=== PATIENT | male | born 1930 | race Caucasian/White ===

== ENCOUNTER 2016-07-27 14:26 | Inpatient (IN) ==
[2016-07-27 15:26] LABS: MANUAL DIFF NEEDED? NO
[2016-07-27 15:29] LABS: BASO% 0.1 % (0.0-0.8); EOS# 0.01 X1000 (0.0-0.7); EOS% 0.1 % (0.0-10.0); HEMATOCRIT 43.1 % (42.0-52.0); HEMOGLOBIN 14.3 g/dL (14.0-18.0); IMM GRAN# 0.02 X1000 (0.0-0.04); IMM GRAN% 0.2 % (0.0-0.5); LYMPH# 0.62 X1000 (1.2-3.4); LYMPH% 5.6 % (20.5-51.1); MCH 32.1 PG (27-31); MCHC 33.2 g/dL (33-37); MCV 96.9 FL (81-99); MONO# 1.09 X1000 (0.11-0.59); MONO% 9.8 % (1.7-9.3); MPV 9.6 FL (7.4-10.4); NEUT% 84.2 % (42.2-75.2); PLT 186 X1000 (130-400); RBC 4.45 XMIL (4.7-6.1)
[2016-07-27 16:01] LABS: ALBUMIN 4.6 g/dL (3.5-5.0); CALCIUM 10.4 mg/dL (8.8-10.2); POTASSIUM 3.9 mmol/L (3.5-5.1); TOTAL BILIRUBIN 2.3 mg/dL (0.20-1.00); TOTAL PROTEIN 7.9 g/dL (6.3-8.3)
[2016-07-27] MEDS: ZOFRAN IV PRN (16:19)
[2016-07-27] MEDS: D5 1/2 NS 1,000 ML IV SCH ×2 (16:19→23:52)
--- NOTE | 2016-07-27 16:52 | Diag Imaging Result Document ---
PROCEDURE NAME: US GB < RUQ (LIMITED) - 07/27/2016 PORTABLE GALLBLADDER ULTRASOUND: INDICATION: Abdomen pain. FINDINGS: The stomach is fluid distended, as are multiple jejunal loops in the upper abdomen. Followup with acute abdominal series is recommended to assess for possible small-bowel obstruction. The liver appears normal in size and echotexture. There is cholelithiasis and associated gallbladder sludge. No gallbladder wall thickening or pericholecystic fluid is appreciated. The abdominal aorta and IVC are not visualized. Common bile duct measures 2.4 mm. The pancreas is suboptimally visualized. The right kidney is unremarkable. No hydronephrosis. No sonographic Sawant sign was elicited according to the technologist. IMPRESSION: 1. Cholelithiasis and gallbladder sludge. 2. No sonographic evidence for acute cholecystitis. 3. Multiple distended proximal small-bowel loops. Findings may indicate ileus or mechanical small- bowel obstruction. Followup with acute abdominal series or CT scan of the abdomen and pelvis is recommended as desired clinically.
--- NOTE | 2016-07-27 17:46 | HISTORY AND PHYSICAL ---
CHIEF COMPLAINT: Nausea and vomiting for 2 or 3 days, generalized weakness, and decrease in urine output. PRESENT ILLNESS: This is the 1st recent [facility] admission for this 86-year-old, white man who has a moderate degree of dementia but also generalized weakness. He was in his usual state of health until Saturday when he ate some pureed chicken and dressing from [employer]. His daughter feels that he became sick after eating that. His did not eat any. He had some vomiting, but no hematemesis. He has had normal bowel movements and no diarrhea. He presented to the office today and was too weak to get out of his car. He was checked and found to be very weak with thready pulse. He was admitted for treatment with intravenous fluids and for further evaluation. In 2014 his BUN and creatinine were 22 and 0.9. After admission, laboratory was done and revealed BUN to be 80 and creatinine 2.0. Bilirubin was elevated at 2.3. Other liver functions were normal. Amylase was 48. PAST MEDICAL HISTORY: He had a right inguinal hernia repair many years ago. There is history of ulcer disease. PRESENT MEDICATIONS: None. ALLERGIES: Hydrocodone. REVIEW OF SYSTEMS: Progressive weakness over the past couple of years with physical therapy through home health assistance and also provision of walker with wheels and a seat. He has dyspnea with walking about 20 feet. There has been no recent weight loss. Appetite has been fair until Saturday. FAMILY HISTORY: His father with heart disease at age 32. There is no history of cancer. SOCIAL HISTORY: and lives with his . She has moderate disability with chronic back pain. There is no history of smoking or alcohol usage. PHYSICAL EXAMINATION: VITAL SIGNS: Temperature. 98.2 ,heart rate 92, respirations 18, blood pressure 160/71. O2 saturation on room air 100%. Weight 145, height 5 feet 2 inches. GENERAL: Patient is weak and answers simple questions, but does not speak in sentences. HEENT: Pupils equal, round, and reactive to light. Tympanic membranes without inflammation. Pharynx benign with no erythema or exudate. NECK: Supple with no mass or lymphadenopathy. HEART: Regular in rate and rhythm with no murmur, rub or gallop. LUNGS: Clear with no rales or rhonchi. ABDOMEN: Soft with epigastric tenderness but no mass or organomegaly. EXTREMITIES: No cyanosis, clubbing, or edema. There are osteoarthritic changes of the hands and feet. Also knees. IMPRESSION: Acute gastritis, possible gallbladder disease, dehydration, generalized osteoarthritis, moderate dementia. PLAN: Admit for further evaluation and hydration. cc: Philippe Ma MD
[2016-07-28] MEDS: ZOFRAN IV PRN (00:31)
--- NOTE | 2016-07-28 02:20 | Diag Imaging Result Document ---
PROCEDURE NAME: CHEST-PORTABLE - 07/27/2016 PORTABLE CHEST: COMPARISON: Compared with 01/15/2016. FINDINGS: Heart size is within normal limits. Inspiration is mildly shallow. There is mild prominence of lower lung interstitial markings which appears to be chronic. There are ovoid calcifications at the mid to lower left chest which are similar to the previous exam and likely represent granulomas from old granulomatous disease. There is no consolidation, pleural effusion, or pneumothorax identified. IMPRESSION: Mildly shallow inspiration. Mild prominence of lower lung interstitial markings which appears to be chronic. No other evidence of acute disease.
[2016-07-28 06:34] LABS: CALCIUM 9.2 mg/dL (8.8-10.2)
--- NOTE | 2016-07-28 08:26 | PROGRESS NOTE ---
DATE: 07/28/2016 SUBJECTIVE: The patient had some additional vomiting last night. VITAL SIGNS: Temperature 97.6 degrees, heart rate 83, respirations 20, blood pressure 152/58, O2 saturation 98% on room air. OBJECTIVE: Abdominal ultrasound suggested ileus and CT scan was recommended if symptoms persisted. LABORATORY: Sodium 140, potassium 3.0. BUN 86, creatinine 1.6, glucose 156. PLAN: Abdominal CT without contrast is ordered for this morning. IV potassium is also ordered as well as lab for tomorrow morning. If he continues to have vomiting and CT confirms ileus, an NG tube may be needed. cc: Philippe Ma MD
[2016-07-28] MEDS: POTASSIUM CHLORIDE 20 MEQ/SWI 20 MEQ/100 ML IVPB IV SCH ×2 (09:02→12:28)
[2016-07-28] MEDS: D5 LR 1,000 ML IV SCH ×4 (09:02→23:01)
[2016-07-28] MEDS: COZAAR PO SCH (09:03)
--- NOTE | 2016-07-28 09:10 | PROGRESS NOTE ---
DATE: 07/27/[address] The patient had a CT of his abdomen this morning. This revealed possible small-bowel obstruction of the distal small bowel. No masses were seen. PLAN: NG tube is placed. Flat and upright abdominal films are ordered for tomorrow morning. If there is no improvement, he may be transferred to [facility] and surgical consultation obtained. cc: Philippe Ma MD
--- NOTE | 2016-07-28 09:12 | Diag Imaging Result Document ---
PROCEDURE NAME: ABDOMEN/PELVIS W/O CONTRAST - 07/28/2016 CT ABDOMEN AND PELVIS WITHOUT CONTRAST: FINDINGS: No contrast administered per request of the referring provider. A dose reduction protocol was used. No comparison exam. There are mild infiltrate and atelectasis at the right lung base. The stomach is distended with fluid. There is dilatation of multiple small bowel loops with retained fluid. There is nondistended distal small bowel visible. These findings are suspicious for mid to distal small bowel obstruction. The specific etiology for the obstruction is not identified. A definitive internal hernia or volvulus is not identified. There is no abscess identified. There is no free air identified. There is a moderate amount of retained fecal debris noted in the right colon. There are no acute appearing abnormalities of the liver, spleen, adrenal glands , pancreas, or kidneys identified. There are small calcified gallstones in the dependent portion of the gallbladder. There is no pericholecystic inflammation identified. IMPRESSION: 1. Distended stomach and jejunum with retained fluid, highly suspicious for mid to distal small bowel obstruction. The specific etiology for the obstruction is not apparent. 2. No evidence of abscess. No free air. 3. Moderate amount of retained fecal debris in right colon. 4. Small calcified gallstones in gallbladder. No evidence of pericholecystic inflammation. 5. Mild infiltrate and atelectasis at right lung base. Dr. Ma was notified by telephone of the small bowel obstruction at 8:38 a.m. on July 28, 2016. MTDD
--- NOTE | 2016-07-28 10:53 | Diag Imaging Result Document ---
PROCEDURE NAME: CHEST-PORTABLE - 07/28/2016 PORTABLE CHEST: COMPARISON: July 27, 2016. FINDINGS: There has been interval insertion of a nasogastric tube. The tip of the nasogastric tube is at the expected location of the mid stomach. The external portion of the nasogastric tube is noted to overlie the mediastinum and right upper quadrant abdomen. There are no other interval changes identified. IMPRESSION: Tip of nasogastric tube in midstomach. Verbal results were provided to nurse, Alyssa, at 10:14 a.m. on July 28, 2016.
[2016-07-28] MEDS: PROTONIX IV SCH (12:43)
[2016-07-28] MEDS: SODIUM CHLORIDE 0.9% INJ SCH (12:43)
[2016-07-28 12:44] LABS: HEMATOCRIT 38.6 % (42.0-52.0); HEMOGLOBIN 12.8 g/dL (14.0-18.0)
[2016-07-28 14:24] LABS: BILIRUBIN URINE NEGATIVE (NEGATIVE); BLOOD URINE NEGATIVE (NEGATIVE); CLARITY CLEAR (CLEAR); COLOR YELLOW; GLUCOSE URINE NEGATIVE (NEGATIVE); LEUKOCYTES URINE TRACE (NEGATIVE); NITRITE URINE NEGATIVE (NEGATIVE); PROTEIN URINE 1+(30 mg/dL) mg/dL (NEGATIVE); UROBILINOGEN URINE NORMAL
[2016-07-28 14:41] LABS: URINE WBC <10 /HPF (<10)
[2016-07-28 14:42] LABS: URINE CAST NONE SEEN /LPF; URINE CRYSTAL NONE SEEN /HPF; URINE CULTURE PL NEEDED? YES; URINE EPITHELIAL CELLS <10 /HPF (<10); URINE SOURCE CATH
[2016-07-28] MEDS: ROCEPHIN 1 GM/NS 1 GM/50 ML IVPB IV SCH (15:30)
[2016-07-28] MEDS: D5 1/2 NS 1,000 ML IV SCH (16:26)
[2016-07-28] MEDS: TEARISOL OPH SOLUTION LEFT EYE PRN (17:48)
[2016-07-29] MEDS: PROTONIX IV SCH ×2 (00:34→12:22)
[2016-07-29 04:15] LABS: MANUAL DIFF NEEDED? NO
[2016-07-29 04:23] LABS: EOS# 0.02 X1000 (0.0-0.7); EOS% 0.4 % (0.0-10.0); HEMATOCRIT 35.1 % (42.0-52.0); HEMOGLOBIN 11.7 g/dL (14.0-18.0); IMM GRAN# 0.01 X1000 (0.0-0.04); IMM GRAN% 0.2 % (0.0-0.5); LYMPH% 10.6 % (20.5-51.1); MCHC 33.3 g/dL (33-37); MCV 98.9 FL (81-99); MONO# 0.61 X1000 (0.11-0.59); MONO% 10.8 % (1.7-9.3); MPV 9.6 FL (7.4-10.4); PLT 121 X1000 (130-400); RBC 3.55 XMIL (4.7-6.1)
[2016-07-29 04:42] LABS: CALCIUM 8.7 mg/dL (8.8-10.2); POTASSIUM 3.2 mmol/L (3.5-5.1)
[2016-07-29] MEDS: D5 LR 1,000 ML IV SCH ×3 (06:39→22:04)
--- NOTE | 2016-07-29 07:33 | Diag Imaging Result Document ---
PROCEDURE NAME: ABDOMEN FLAT/UPRIGHT - 07/29/2016 PORTABLE FLAT AND UPRIGHT ABDOMEN: FINDINGS: The nasogastric tube overlies the stomach. No free air beneath the diaphragm. No bowel obstruction. No organomegaly. There are degenerative changes spine changes with scoliosis. IMPRESSION: No evidence of acute abnormality.
--- NOTE | 2016-07-29 08:57 | PROGRESS NOTE ---
DATE: 07/29/2016 VITAL SIGNS: Stable with temperature 98.1 degrees, heart rate 88, respirations 18, blood pressure 118/52, O2 saturation 97% on room air. LABORATORY: Hemoglobin 11.7, hematocrit 35.1, white blood count 5600 with normal differential. Sodium 141, potassium 3.2, BUN 77, creatinine 1.4, calcium 8.7, glucose 132. Flat and upright abdominal x-ray, no evidence of bowel obstruction and no free air under the diaphragm. Chest is clear. PLAN: Remove NG tube and place on clear liquids. Potassium is added IV. Hopefully, he will be able to get up in a chair today. cc: Philippe Ma MD
[2016-07-29] MEDS ORDERED: LOVENOX SUBQ SCH (09:00)
[2016-07-29] MEDS: COZAAR PO SCH (09:51)
[2016-07-29] MEDS: POTASSIUM CHLORIDE 20 MEQ/SWI 20 MEQ/100 ML IVPB IV SCH ×2 (09:51→12:22)
[2016-07-29] MEDS: SODIUM CHLORIDE 0.9% INJ SCH (12:22)
[2016-07-29] MEDS: ROCEPHIN 1 GM/NS 1 GM/50 ML IVPB IV SCH (16:28)
[2016-07-29] MEDS ORDERED: DULCOLAX PR ONE (18:37)
[2016-07-30] MEDS: D5 LR 1,000 ML IV SCH ×6 (04:53→20:12)
[2016-07-30] MEDS: PRILOSEC PO SCH (06:22)
[2016-07-30 06:26] LABS: AGAP 7; BUN 57 mg/dL (8-22); CALCIUM 8.8 mg/dL (8.8-10.2); CHLORIDE 97 mmol/L (98-107); COSMO 293; POTASSIUM 3.5 mmol/L (3.5-5.1); SODIUM 138 mmol/L (136-145); TCO2 34 mmol/L (25-35)
[2016-07-30] MEDS ORDERED: MILK OF MAGNESIA PO ONE ×2 (07:30→10:00)
--- NOTE | 2016-07-30 08:50 | PROGRESS NOTE ---
DATE: 07/30/2016 LABS: Sodium 130, potassium 3.5, chloride 97, CO2 of 34, BUN 57, creatinine 1.1. Glucose 117. VITAL SIGNS: Temperature 97.4, heart rate 76, respiration 19, blood pressure 125/39, O2 saturation on room air 96%. OBJECTIVE: He did not have a bowel movement overnight despite Dulcolax suppository. Abdomen is soft. He is alert. He tolerated p.o. liquids yesterday. Chest is clear. He is very weak and unable to stand without assistance. PLAN: Increase diet to GI soft. Physical therapy will continue to ambulate. He is given milk of magnesia. DISPOSITION: Will be most likely rehab. cc: Philippe Ma MD
[2016-07-30] MEDS: COZAAR PO SCH (09:59)
[2016-07-30] MEDS: ROCEPHIN 1 GM/NS 1 GM/50 ML IVPB IV SCH (16:14)
[2016-07-30] MEDS ORDERED: CITRATE OF MAGNESIA PO ONE (16:44)
[2016-07-31] MEDS: D5 LR 1,000 ML IV SCH ×4 (03:10→18:50)
[2016-07-31] MEDS: PRILOSEC PO SCH (06:01)
--- NOTE | 2016-07-31 07:56 | PROGRESS NOTE ---
DATE: 07/31/2016 HISTORY: Vital signs: Temperature 98.1 degrees, heart rate 84, respiration 18, blood pressure 118/62, O2 saturation on room air 98%. He had additional vomiting last night and could not keep in the magnesium citrate. He had vomiting after taking about half the dose. An NG was replaced and 2200 mL was obtained on insertion of the NG. Abdominal x-ray revealed NG was in appropriate position. Upright film was not done and evidence of fluid levels could not be determined. PLAN: Because of recurrent vomiting and signs of bowel obstruction, he will be sent to [facility] for surgical consultation and evaluation. Rectal exam was done this morning and revealed no stool. He has not had a bowel movement since admission. cc: Philippe Ma MD
[2016-07-31 08:25] LABS: AGAP 5; ALBUMIN 3.2 g/dL (3.5-5.0); ALKALINE PHOSPHATASE 71 U/L (32-122); BUN 38 mg/dL (8-22); CALCIUM 8.7 mg/dL (8.8-10.2); CHLORIDE 100 mmol/L (98-107); COSMO 287; GOT 16 U/L (10-34); GPT 10 U/L (10-44); POTASSIUM 3.1 mmol/L (3.5-5.1); SODIUM 138 mmol/L (136-145); TCO2 33 mmol/L (25-35); TOTAL PROTEIN 5.5 g/dL (6.3-8.3)
--- NOTE | 2016-07-31 08:25 | Diag Imaging Result Document ---
PROCEDURE NAME: ABDOMEN FLAT/UPRIGHT - 07/30/2016 SUPINE AND UPRIGHT ABDOMEN, THREE VIEWS: FINDINGS: There is a nasogastric tube overlying the stomach. No free air beneath the diaphragm. There is stool in the colon. The bowel loops are not overly distended. There is scoliosis with degenerative spine changes. IMPRESSION: No obstruction identified.
[2016-07-31 08:49] LABS: MANUAL DIFF NEEDED? NO
[2016-07-31 08:52] LABS: BASO% 0.2 % (0.0-0.8); EOS# 0.06 X1000 (0.0-0.7); EOS% 1.4 % (0.0-10.0); HEMOGLOBIN 11.5 g/dL (14.0-18.0); IMM GRAN# 0.01 X1000 (0.0-0.04); IMM GRAN% 0.2 % (0.0-0.5); LYMPH# 0.49 X1000 (1.2-3.4); LYMPH% 11.1 % (20.5-51.1); MCH 31.7 PG (27-31); MCHC 31.9 g/dL (33-37); MCV 99.2 FL (81-99); MONO# 0.54 X1000 (0.11-0.59); MONO% 12.3 % (1.7-9.3); MPV 9.7 FL (7.4-10.4); NEUT% 74.8 % (42.2-75.2); PLT 117 X1000 (130-400); RBC 3.63 XMIL (4.7-6.1)
[2016-07-31] MEDS: COZAAR PO SCH (08:57)
[2016-07-31] MEDS: PROTONIX IV SCH (08:58)
[2016-07-31] MEDS: SODIUM CHLORIDE 0.9% INJ SCH (08:58)
[2016-07-31] MEDS: ROCEPHIN 1 GM/NS 1 GM/50 ML IVPB IV SCH (15:58)
[2016-07-31] MEDS: POTASSIUM CHLORIDE 20 MEQ/SWI 20 MEQ/100 ML IVPB IV SCH ×2 (16:55→19:25)
--- NOTE | 2016-07-31 20:49 | CONSULTATION ---
DATE OF CONSULTATION: 07/31/2016 HISTORY OF PRESENT ILLNESS: This is an 86-year-old, white male who was admitted to Dr. Philippe Ma's service on Saturday, the , with colicky abdominal pain, nausea and vomiting. A CT scan was concerning for bowel obstruction versus ileus. An NG tube which ultimately removed on Saturday. He was given liquids and began with bilious emesis at that time. NG tube was replaced and he was transferred to [facility]. He had some colicky pain but this improved. He denies any flatus or bowel movements. states he has been deteriorating at home, losing weight, not really getting around well, using a walker. PAST MEDICAL HISTORY: History of peptic ulcer disease. MEDICATIONS: He does not take any medications. PAST SURGICAL HISTORY: He had a right inguinal hernia repair and a knee operation. SOCIAL HISTORY: He lives with his of 47 years. He is disabled with chronic back pain. No tobacco or alcohol. REVIEW OF SYSTEMS: Ten point negative other than what is mentioned in the HPI. FAMILY HISTORY: Coronary disease, but no cancer. PHYSICAL EXAMINATION: Vital Signs: Temperature is 98.4 degrees, pulse 81, blood pressure 132/57, O2 saturation 99% on room air. General: He is alert, cachectic appearing, elderly gentleman. HEENT: No scleral icterus. There is no cervical mass or lymphadenopathy. Cardiovascular: Normal rate, regular rhythm. Pulmonary: No increased work of breathing. He is on room air. Gastrointestinal: There is a G-tube in place with scant clear brownish discharge. Abdomen is soft, nontender, nondistended. I feel no umbilical or inguinal hernias. Integument: Otherwise warm and dry without jaundice. Musculoskeletal Examination: There is significant atrophy and wasting throughout. Neurologic: He is mildly disoriented and confused but alert. LABS: White count 4, hematocrit 36, platelets 117. Sodium is 138, potassium is low at 3.1, BUN is 38, creatinine 0.9, glucose is 132, bilirubin is mildly elevated at 1.2, AST and ALT are 16 and 10, amylase was 48 on admission. Urinalysis shows ill trace white blood cells. ASSESSMENT AND PLAN: This is an 86-year-old male with what appears to be bowel obstruction versus ileus. I do not see a clear transition point, rather there is bowel compromise on CT scan that is slow to resolve. He has persistent electrolyte abnormalities with hypokalemia. He has not had a magnesium check in a while. He has failed NG tube removal trial. PLAN: We will keep the NG tube in tonight with strict bowel rest. He will need nutritional supplementation given his cachectic state and ongoing nature of this. We will plan for an upper GI with small-bowel follow-through with water-soluble contrast tomorrow. I would recommend aggressive electrolyte repletion with K greater than 4, magnesium greater than 2 to facilitate resolution of any ileus type symptoms. I would avoid stimulating from above but dulcolax suppositories would be not unreasonable given that he does have some stool burden in the right colon. We will continue to follow along. I suspect if he does not progress in the next 24 to 48 hours, he may ultimately need an operation and this would be a big deal for this ill- appearing 86- year-old male. cc: MD Philippe Simmons MD MTDD
[2016-08-01] MEDS: PROTONIX IV SCH ×2 (05:16→07:57)
[2016-08-01] MEDS: D5 LR 1,000 ML IV SCH ×2 (05:16→05:44)
[2016-08-01] MEDS: SODIUM CHLORIDE 0.9% INJ SCH (05:17)
[2016-08-01] MEDS ORDERED: [UNRECOGNIZED DRUG - OTHER] IV SCH (07:45)
--- NOTE | 2016-08-01 07:57 | PROGRESS NOTE ---
DATE: 08/01/2016 Vital signs are stable with temperature 98.4 degrees, heart rate 77, respirations 16, blood pressure 144/56, O2 saturation on room air of 98%. Laboratory is pending. Patient was transferred to [facility] last evening for surgical consultation. NG tube has been needed on 2 occasions since there seems to be a small bowel obstruction. He was seen by Dr. Chan last evening and plans upper GI with small-bowel follow-through with water-soluble contrast. Nutritional status is of concern. He may need a central line and TPN soon if his obstruction could not be relieved. He is a significant surgical risk with age and condition. I and O over the last shift was positive 2400. He has no peripheral edema or rales on exam. PLAN: Continue NG and potassium replacement. cc: Philippe Ma MD
[2016-08-01 08:01] LABS: AGAP 11; BUN 28 mg/dL (8-22); CALCIUM 8.6 mg/dL (8.8-10.2); CHLORIDE 103 mmol/L (98-107); COSMO 289; POTASSIUM 3.7 mmol/L (3.5-5.1); SODIUM 142 mmol/L (136-145); TCO2 28 mmol/L (25-35)
--- NOTE | 2016-08-01 09:11 | Diag Imaging Result Document ---
PROCEDURE NAME: ABDOMEN FLAT/UPRIGHT - 07/31/2016 FLAT AND UPRIGHT RADIOGRAPH OF THE ABDOMEN, 4 VIEWS: COMPARISON: 07/30/2016. FINDINGS: There is an NG tube in place projecting below the diaphragm and assumed to be in the stomach. There is patchy small bowel gas and some colonic gas. There is only mild gaseous distention of a few loops of small bowel. However, it does appear to be worse than the previous study. There is no evidence of large-volume free abdominal gas. IMPRESSION: Slight increase in small bowel distention as described.
[2016-08-01] MEDS ORDERED: CLINIMIX E 4.25%-5% SOLUTION 1,000 ML IV SCH (13:00)
--- NOTE | 2016-08-01 13:26 | PROGRESS NOTE ---
DATE: 08/01/2016 SUBJECTIVE: No pain in his abdomen. No flatus. NG tube is in place, putting out a moderate amount. OBJECTIVE: Vital signs: Temperature is 98 degrees, pulse 75, blood pressure 153/50, oxygen saturation 99% on room air. General: He is alert, seems confused. Very cachectic, elderly- appearing male. HEENT: NG tube is in place with some clear output which is bilious. Abdomen: Soft. Mildly distended. Nontender. LABS: No CBC this morning. Creatinine is 0.9, glucose is 104. Potassium is up to 3.7. ASSESSMENT AND PLAN: This is an 86-year-old male with bowel obstruction versus ileus. I have ordered a small bowel follow through today to define ileus versus obstruction and help guide further therapy. I am apprehensive to operate on this gentleman given his age and comorbid conditions, but he may ultimately progress to this. Electrolytes, potassium getting better but Dr. Ma is working on repleting his magnesium and potassium and is entertaining the idea of parenteral nutrition. Will continue to follow along. Further input after his upper GI study today. cc: MD Philippe Simmons MD
[2016-08-01] MEDS: ZOFRAN IV PRN (14:15)
[2016-08-01] MEDS ORDERED: MAGNESIUM SULFATE 1 GM/D5W 1 GM/100 ML IVPB IV ONE (16:56)
[2016-08-01] MEDS ORDERED: PHENERGAN IV PRN (17:01)
[2016-08-01] MEDS ORDERED: SODIUM CHLORIDE 0.9% INJ PRN (17:01)
[2016-08-01] MEDS: ROCEPHIN 1 GM/NS 1 GM/50 ML IVPB IV SCH (17:11)
[2016-08-01] MEDS: CLINIMIX E 4.25%-5% SOLUTION 1,000 ML IV SCH ×2 (17:13→20:33)
[2016-08-02] MEDS: SODIUM CHLORIDE 0.9% INJ SCH ×2 (02:01→09:30)
[2016-08-02] MEDS: CLINIMIX E 4.25%-5% SOLUTION 1,000 ML IV SCH ×4 (02:20→18:44)
[2016-08-02 06:24] LABS: MANUAL DIFF NEEDED? NO
[2016-08-02 06:32] LABS: BASO% 0.1 % (0.0-0.8); EOS# 0.07 X1000 (0.0-0.7); HEMATOCRIT 36.2 % (42.0-52.0); HEMOGLOBIN 12.8 g/dL (14.0-18.0); IMM GRAN# 0.02 X1000 (0.0-0.04); IMM GRAN% 0.3 % (0.0-0.5); LYMPH# 0.63 X1000 (1.2-3.4); LYMPH% 9.1 % (20.5-51.1); MCH 34.4 PG (27-31); MCHC 35.4 g/dL (33-37); MCV 97.3 FL (81-99); MONO# 0.73 X1000 (0.11-0.59); MONO% 10.5 % (1.7-9.3); MPV 9.9 FL (7.4-10.4); PLT 136 X1000 (130-400); RBC 3.72 XMIL (4.7-6.1)
[2016-08-02 07:03] LABS: AGAP 11; BUN 37 mg/dL (8-22); CHLORIDE 101 mmol/L (98-107); COSMO 289; POTASSIUM 3.8 mmol/L (3.5-5.1); SODIUM 140 mmol/L (136-145); TCO2 28 mmol/L (25-35)
--- NOTE | 2016-08-02 08:17 | Diag Imaging Result Document ---
PROCEDURE NAME: SMALL BOWEL SERIES ONLY - 08/01/2016 SMALL BOWEL SERIES: Exam is submitted to tx for dictation on the morning of 08/02/2016. FINDINGS: The contrast was administered through the nasogastric tube. There is slow progress of contrast in the small bowel. The opacified small bowel is dilated. The stomach is distended. The contrast does not appear to have reached the colon to a time of 12 hours following administration. This suggests the likelihood of distal small bowel obstruction. IMPRESSION: Slow progression of contrast in small bowel, which is dilated. The contrast does not appear to have reached the colon by the 12-hour image. This suggests the likelihood of distal small bowel obstruction.
--- NOTE | 2016-08-02 08:18 | PROGRESS NOTE ---
DATE: 08/02/2016 SUBJECTIVE: He is resting this morning. No events recorded overnight. OBJECTIVE: Vital Signs: Temperature is 98.6 degrees, pulse 73, blood pressure 165/64, saturation 100% on room air. General: He is sleeping this morning. No acute distress. HEENT: There is no scleral icterus. There is an NG tube in place with bilious output. Cardiovascular: Normal rate, regular rhythm. Abdomen: Soft. Mild to moderately distended. Nontender. Integumentary: Otherwise warm and dry. LABORATORY DATA: White count is normal at 6, hematocrit 36. Creatinine is normal at 0.9. Potassium is better at 3.8. Magnesium is 2.2. I reviewed a small bowel follow through that he had done yesterday. There is significant proximal dilation of the small bowel and stomach, and at 12 hours I do not see contrast making it to his colon. He has a KUB repeat this morning. ASSESSMENT AND PLAN: I suspect that he is not going to resolve this, and his electrolytes are better now as well. I will talk to the family today and tentatively plan for an exploratory laparotomy tomorrow if the family wishes to pursue this. Another option will be to continue nasogastric tube decompression with parenteral nutrition. I think in this 86-year-old ill chronically male, it would be high likelihood that he would have a postoperative complication and would most likely not do well with surgery. However, we are in a situation now where he has a bowel obstruction that is not resolving with nonoperative management, although his exam remains benign. He has only had an inguinal hernia repair, and there is the possibility that this could be some neoplastic process that is causing this. I do not feel a hernia on exam. We will need to discuss this matter with the family, although I do not see any evidence of this on the CT scan. cc: MD Philippe Simmons MD
--- NOTE | 2016-08-02 08:46 | PROGRESS NOTE ---
DATE: 08/02/2016 VITAL SIGNS: Temperature 98 degrees, heart rate 87, respiration 20, blood pressure 152/64, O2 saturation 97% on room air. IMAGING AND LABORATORY DATA: Hemoglobin 12.8, hematocrit 36.2, white blood count 6900, with 79% neutrophils. Sodium 140, potassium 3.8, chloride 101, BUN 37, creatinine 0.9, glucose 116. Magnesium 2.2. Bilirubin 1.2, total protein 5.5, albumin 3.2. Small bowel x-ray revealed dye to stop before reaching the terminal ileum. There appears to be a distal small bowel obstruction. PLAN: He has not responded to conservative measures. He is a considerable surgical risk at age 86, but it is felt that his problem will not resolve without surgery. If surgery is not planned, he will need TPN and central line. Dr. Chan is to discuss surgery with the family today. cc: Philippe Ma MD
[2016-08-02] MEDS: PROTONIX IV SCH (09:31)
--- NOTE | 2016-08-02 12:52 | Diag Imaging Result Document ---
PROCEDURE NAME: ROSEMARY ABDOMEN - 08/02/2016 SUPINE RADIOGRAPH OF THE ABDOMEN AND PELVIS: COMPARISON: 08/01/2016. FINDINGS: There is a large amount of retained barium seen in loops of bowel from a small bowel follow-through study performed over 24 hours ago. Most of this contrast still appears to be in small bowel and stomach. It is unclear if there is any in the colon. The abdomen is stable, otherwise. IMPRESSION: Persistent large amount of retained barium in small bowel 24 hours after administration with little, if any, seen in the colon.
[2016-08-02] MEDS: ROCEPHIN 1 GM/NS 1 GM/50 ML IVPB IV SCH (16:35)
[2016-08-03] MEDS: CLINIMIX E 4.25%-5% SOLUTION 1,000 ML IV SCH ×5 (02:53→23:34)
[2016-08-03] MEDS: PROTONIX IV SCH (07:44)
[2016-08-03] MEDS: SODIUM CHLORIDE 0.9% INJ SCH (07:44)
--- NOTE | 2016-08-03 08:05 | PROGRESS NOTE ---
DATE: 08/03/2016 SUBJECTIVE: Overnight, patient is increasingly somnolent. Difficult to arouse. Sleeping with eyes open. NG in place. Decisions have been made to evaluate this morning for exploratory surgery per Dr. Chan to evaluate the small-bowel obstruction that is likely in the proximal small bowel, status post a small bowel follow-through that showed a significant proximal dilatation. OBJECTIVE: Vital signs: Temperature 98 degrees, pulse 86, respirations 16, blood pressure 119/58, O2 saturation 95% on room air. Output was positive fluid balance of about 1500. The patient taking bites only as NPO except for ice chips. OBJECTIVE: General: Ill-appearing, elderly male somnolent with eyes open. Difficult to maintain arousal. Appearance consistent with age. Neck: Supple. No JVD. Chest: Clear to auscultation anteriorly with decreased effort. CV: Shows occasional PVCs but no overt murmurs, gallops, rubs. Abdomen: Diffusely protuberant with tympany and increased bowel sounds in most of the quadrants, not particularly noted is high-pitched. The patient has no guarding, no rebound, no tenderness of the abdomen. No cyanosis, no clubbing or edema in the lower extremities. LABORATORY/DIAGNOSTIC DATA: This morning, show an hemoglobin and hematocrit of 12 and 36, with a WBC normal. Electrolytes look within normal limits. BUN of 37, creatinine 0.9, glucose is 116, total protein 5.5. Abdominal x-ray performed 08/02/2016 at 0850 hours, showed large amount of retained barium small- bowel 24 hours after administration with little action in the colon. ASSESSMENT AND PLAN: An 86-year-old, white male with: 1. Likely small-bowel obstruction, proximal small bowel. 2. Acute gastritis. 3. Dehydration. 4. Generalized osteoarthritis. 5. Moderate dementia. 6. Intractable nausea, vomiting. Patient plans to be evaluated by surgery this a.m. We will follow over the weekend concerning any the changes status post exploratory laparotomy, maintaining nasogastric tube and dressing electrolyte changes as they occur. cc: MD Philippe Landa MD
[2016-08-03] MEDS ORDERED: OFIRMEV 1000 MG/ISOTONIC SOLN 1,000 MG/100 ML BOTTLE IV SCH (13:00)
[2016-08-03] MEDS ORDERED: FENTANYL ONE (13:13)
[2016-08-03] MEDS ORDERED: DIPRIVAN 1% ONE (13:16)
[2016-08-03] MEDS ORDERED: VERSED ONE (13:17)
[2016-08-03] MEDS: MORPHINE ONE ×2 (13:19→13:27)
--- NOTE | 2016-08-03 13:35 | PROGRESS NOTE ---
DATE: 08/03/2016 SUBJECTIVE: No bowel function overnight. NG tube remains very bilious. His upper GI study showed no passage of contrast after 24 hours. OBJECTIVE: General: No fevers. No tachycardia. Abdomen: Remains distended. Nontender. Neurologic: He is alert this morning but disoriented. HEENT: NG tube is bilious. Integumentary: Warm and dry. Extremities: He has some lower extremity edema. LABS: Reviewed. White count 6, hematocrit 36. Creatinine 0.9. ASSESSMENT AND PLAN: This 86-year-old male. I had a long discussion with his and patient last night about risks, benefits, and alternatives to surgery. He consents to exploratory laparotomy. Discussed possibility of bowel resection, possible colostomy, and possible unexpected findings and all indicated procedures. He consents and will plan to go tomorrow for this. Otherwise, him keep him NPO with NG tube decompression. cc: MD Philippe Simmons MD
--- NOTE | 2016-08-03 13:44 | OPERATIVE NOTE ---
PROCEDURE DATE: 08/03/2016 PREOPERATIVE DIAGNOSES: 1. Small-bowel obstruction. 2. Cholelithiasis. POSTOPERATIVE DIAGNOSES: 1. Small-bowel obstruction. 2. Cholelithiasis. PROCEDURE PERFORMED: 1. Exploratory laparotomy with lysis of adhesions. 2. Cholecystectomy. ESTIMATED BLOOD LOSS: 50 mL. ANESTHESIA: General. INDICATIONS: An 86-year-old male who had bowel obstruction for approximately 5-6 days initially resolved, but he became re-obstructed and small bowel follow-through showed complete obstruction in the mid to distal small bowel. Exploratory laparotomy is indicated. He also had calcified gallstones noted at the time of his initial CT scan. OPERATIVE FINDINGS: Proximally very dilated small bowel and stomach. This tapered down at an area in the midline in the lower abdomen where there was a dense adhesive band around which the small bowel was kinked. We freed this and relieved the obstruction. More proximally there is an area of slight twisting where there was some epiploic appendagitis here in the small bowel. Otherwise, the remaining small bowel, colon, stomach, liver and rectum were normal appearing. The gallbladder was chronically inflamed with palpable stones within some omental adhesions here. OPERATIVE NOTE: Risks, benefits, alternatives discussed with patient's family who consented to the procedure. He was seen in the preoperative area and surgery to be performed confirmed. He was taken to the operating room, placed in supine position, general anesthesia induced. He had already had a Patricia catheter and nasogastric tube. We prepped his abdomen with chlorhexidine and draped in usual fashion. After time-out was performed, a midline incision was made. We entered the abdomen with care to protect the underlying structures. We inspected all quadrants and systematically starting at the ligament Treitz ran the bowel distally. There is no succus, there is no perforation. We ran the bowel down to where we identified the area of obstruction, lysed a single band here relieving the obstruction. We then ran the bowel in a retrograde fashion starting at the terminal ileum at the ileocecal valve progressing backwards, and again it all filled okay. We milked the succus back in the stomach so it could be decompressed with NG tube. There were no other abnormalities. We inspected all quadrants of the abdomen. We then turned our attention to the gallbladder. It was chronically inflamed with some adhesions here palpable stones noted on his previous CT scan as well. We grasped the gallbladder in a top-down fashion and excised from the gallbladder fossa protecting the liver in the plane between the gallbladder and liver. We used electrocautery to divide the cystic artery. We identified the duct, dissected this down doubly ligated it and removed the gallbladder. There is no bile leakage. Hemostasis confirmed we irrigated this base. I placed omentum under the midline incision, closed the fascia with #1 looped PDS with interrupted 0 Vicryl sutures for internal retention and irrigated the superficial wound, and closed the skin with bess. He tolerated the procedure well. He was awoken and transferred to recovery. I spoke with the family. cc: MD Philippe Simmons MD
[2016-08-03] MEDS ORDERED: MORPHINE ONE (13:55)
[2016-08-03] MEDS ORDERED: ZOFRAN ONE (14:32)
[2016-08-03] MEDS ORDERED: NEOSTIGMINE ONE (14:32)
[2016-08-03] MEDS ORDERED: NEO-SYNEPHRINE ONE (14:32)
[2016-08-03] MEDS ORDERED: LUBRIFRESH PM OPH OINTMENT ONE (14:32)
[2016-08-03] MEDS ORDERED: QUELICIN (DOSE) ONE (14:33)
[2016-08-03] MEDS ORDERED: LR 1,000 ML ONE (14:33)
[2016-08-03] MEDS ORDERED: NORCURON ONE (14:33)
[2016-08-03] MEDS ORDERED: EXTENSION SET 32 IN 4522 ONE (14:33)
[2016-08-03] MEDS ORDERED: XYLOCAINE-MPF 2% ONE (14:33)
[2016-08-03] MEDS ORDERED: OFIRMEV 1000 MG/ISOTONIC SOLN 1,000 MG/100 ML BOTTLE ONE (14:33)
[2016-08-03] MEDS ORDERED: STERILE WATER INJ. ONE (14:33)
[2016-08-03] MEDS ORDERED: ANESTHESIA PB SET 88 IN 5742 ONE (14:33)
[2016-08-03] MEDS ORDERED: ROBINUL ONE (14:33)
[2016-08-03] MEDS: ROCEPHIN 1 GM/NS 1 GM/50 ML IVPB IV SCH (17:00)
[2016-08-04] MEDS: CLINIMIX E 4.25%-5% SOLUTION 1,000 ML IV SCH ×2 (02:26→08:05)
[2016-08-04] MEDS: PERIDEX MT SCH ×3 (02:27→22:38)
--- NOTE | 2016-08-04 06:29 | PROGRESS NOTE ---
DATE: 08/04/2016 SUBJECTIVE: The patient reports some pain but no other major issues reported by the nursing staff. NG tube is in place. No flatus or bowel movement. OBJECTIVE: Vital Signs: Patient is currently afebrile. His vital signs have been stable. General: No acute distress but appears mildly uncomfortable secondary to pain. Cardiovascular: Regular rate and rhythm. Lungs: Grossly clear. Abdomen: Soft. Appropriately tender to palpation. Dressing in place. Hypoactive bowel sounds. LABORATORIES: None. ASSESSMENT/PLAN: An 86-year-old, male status post exploratory laparotomy with lysis of adhesions and cholecystectomy, currently postoperative day #1. Postoperative day #1. At this time, we will await for return of bowel function. We will start on will morphine intermittent. We will monitor his wound. Continue current treatment. cc: MD Philippe Siddiqi MD
[2016-08-04] MEDS: PROTONIX IV SCH (08:05)
[2016-08-04] MEDS: MORPHINE IV PRN ×4 (08:05→22:30)
[2016-08-04] MEDS: SODIUM CHLORIDE 0.9% INJ SCH (08:42)
--- NOTE | 2016-08-04 11:24 | PROGRESS NOTE ---
DATE: 08/04/2016 PRIMARY CARE PHYSICIAN: Dr. Philippe Ma. SUBJECTIVE: The patient was evaluated yesterday by Dr. Chan and taken to the OR, after discussion with family regarding alternatives to surgery. Exploratory laparotomy performed and multiple lysis of adhesions along with cholecystectomy was performed. Currently patient is postop day #1, with morphine being utilized for pain control. OBJECTIVE: Vital signs: Temperature 98.7 degrees, pulse 103, respirations 14, blood pressure 145/62, O2 saturation 94% on room air to 2 L nasal cannula. OBJECTIVE: General: Shows a cachectic, elderly male, somnolent with difficulty to arouse. Neck: No JVD. Chest: Clear to auscultation. CV: Shows occasional PVC but no murmurs, gallops, or rubs. Abdomen: Dressing is clean, dry, and intact. There is decreased tympany and appropriate tenderness noted. Otherwise within normal limits. Extremities: No cyanosis, clubbing, or edema noted. LAB FINDINGS: Hemoglobin and hematocrit are 12 and 36 respectively, WBC of 6.92, platelets of 136,000. Neutrophilia noted slightly at 79. Sodium is 140, BUN 37, with creatinine 0.9. Magnesium 2.2. Total protein 5.5. Microbiology shows prior cultures 07/28 within normal limits. PTH surgical specimen gallbladder evaluated currently but no additional information to be provided at this time. ASSESSMENT: This is an 86-year-old, white male with: 1. Postoperative day #1 lysis of adhesions with cholecystectomy. 2. Acute gastritis. 3. Dehydration with failure to thrive and moderate protein calorie malnutrition. 4. Moderate dementia. 5. Intractable nausea, vomiting. PLAN: Continue with postoperative surgical care. Make sure patient is being provided adequate nutrition and follow response. Evaluation per surgery for any changes in patient's condition over this time. The patient be held until cleared for return to prior functional activity. Likely course of rehabilitation status post if deemed pertinent to the family. cc: MD Philippe Landa MD
[2016-08-04] MEDS: LR 1,000 ML IV SCH ×3 (11:47→20:57)
[2016-08-04] MEDS: ROCEPHIN 1 GM/NS 1 GM/50 ML IVPB IV SCH (16:15)
[2016-08-05] MEDS: LR 1,000 ML IV SCH ×2 (01:04→06:38)
--- NOTE | 2016-08-05 06:09 | PROGRESS NOTE ---
DATE: 08/05/2016 SUBJECTIVE: No major issues reported by the nursing staff. He is resting comfortably in his bed. OBJECTIVE: Vital Signs: Patient is currently afebrile. His heart rate has been in the low 100s but otherwise blood pressure is fine. General Examination: No acute distress. Resting comfortably. Cardiovascular: Regular rate and rhythm. Lungs: Grossly clear. Abdomen: Soft, appropriately tender. Dressing in place. Hypoactive bowel sounds. Laboratory: None at this time. ASSESSMENT/PLAN: An 86-year-old, male status post exploratory laparotomy with lysis of adhesions and cholecystectomy, currently postoperative day #2. At this time, we are awaiting return of bowel function. The patient will continue with his intermittent morphine. Continue to monitor. cc: MD Philippe Siddiqi MD
[2016-08-05] MEDS: PROTONIX IV SCH ×2 (06:39→07:52)
[2016-08-05 07:02] LABS: BASO% 0.1 % (0.0-0.8); EOS# 0.03 X1000 (0.0-0.7); EOS% 0.3 % (0.0-10.0); HEMATOCRIT 32.8 % (42.0-52.0); HEMOGLOBIN 11.1 g/dL (14.0-18.0); IMM GRAN# 0.06 X1000 (0.0-0.04); IMM GRAN% 0.6 % (0.0-0.5); LYMPH# 0.33 X1000 (1.2-3.4); LYMPH% 3.2 % (20.5-51.1); MANUAL DIFF NEEDED? YES; MCH 32.7 PG (27-31); MCHC 33.8 g/dL (33-37); MCV 96.8 FL (81-99); MONO# 0.52 X1000 (0.11-0.59); MPV 9.9 FL (7.4-10.4); NEUT% 90.8 % (42.2-75.2); PLT 190 X1000 (130-400); RBC 3.39 XMIL (4.7-6.1)
[2016-08-05 07:36] LABS: AGAP 11; ALBUMIN 2.3 g/dL (3.5-5.0); ALKALINE PHOSPHATASE 109 U/L (32-122); BUN 58 mg/dL (8-22); CALCIUM 8.3 mg/dL (8.8-10.2); CHLORIDE 100 mmol/L (98-107); COSMO 285; GOT 25 U/L (10-34); GPT 24 U/L (10-44); POTASSIUM 5.1 mmol/L (3.5-5.1); SODIUM 135 mmol/L (136-145); TCO2 24 mmol/L (25-35); TOTAL BILIRUBIN 1.63 mg/dL (0.20-1.00); TOTAL PROTEIN 5.4 g/dL (6.3-8.3)
[2016-08-05] MEDS: MORPHINE IV PRN ×5 (07:51→22:13)
[2016-08-05 08:05] LABS: BANDS 10 % (0-1); LYMPHS 4 % (21-51); MONO 6 % (1-9)
[2016-08-05] MEDS: PERIDEX MT SCH ×2 (08:12→22:11)
--- NOTE | 2016-08-05 08:39 | PROGRESS NOTE ---
DATE: 08/05/2016 PRIMARY CARE PHYSICIAN: Dr. Philippe Ma. Dr. Aris Bravo dictating for Dr. Ma. SUBJECTIVE: Overnight, no major issues or complaints noted. The patient is still at baseline which is low functioning with decreased interaction. NG tube in place with the patient noted to be passing flatus. No issues regarding wound treatment. The patient seems to be well managed on current pain medication regimen. PHYSICAL EXAMINATION: Vital Signs: Temperature 100.8 degrees, pulse 103, respirations 16, blood pressure 126/50, O2 saturation 99% on room air. Is and Os measured to be approximately 1200 mL positive. GI drainage approximately 1 L over the day. Patient is still in p.o. General: Cachectic, elderly male in no overt distress. Noted to be difficult to maintain attention. Neck: Shows no JVD. Chest: Clear to auscultation anteriorly. CV: Shows tachycardia with occasional PVCs. No overt murmurs noted. Abdomen: Dressing is still clean, dry, and intact. There is no amount of tympany noted. The patient is not responding to palpation to give us information regarding tenderness. Extremities: No cyanosis, no clubbing. No edema. LABS: WBC trending down to 6.46, hemoglobin and hematocrit 11 and 32 respectively platelets of 190,000, neutrophils now elevated from 79-90. Sodium 135, chloride of 100, anion gap 11, BUN of 58, with a creatinine of 1.1, glucose 79, phosphorus 3.3, with a magnesium of 2, total protein 5.4, albumin down to 2.3. ASSESSMENT AND PLAN: An 86-year-old, white male with: 1. Postoperative day 2, lysis of adhesions and cholecystectomy. 2. Chronic gastritis. 3. Dehydration with failure to thrive and moderate to severe protein calorie malnutrition. 4. Moderate dementia. 5. Intractable nausea and vomiting. Continue postoperative surgical care. We will correct the electrolyte imbalances as appropriate and continue evaluation per surgery. The patient is likely to be available for clamp of the nasogastric as early as tomorrow with consideration tonight if oral intake is well maintained. cc: MD Philippe Landa MD
[2016-08-05] MEDS: ZOSYN 3.375 GM/NS 3.375 GM/50 ML IVPB IV SCH ×3 (09:54→22:10)
[2016-08-05] MEDS: CLINIMIX E 4.25%-5% SOLUTION 1,000 ML IV SCH ×2 (09:54→16:41)
[2016-08-06 07:12] LABS: BASO% 0.1 % (0.0-0.8); EOS# 0.05 X1000 (0.0-0.7); EOS% 0.4 % (0.0-10.0); HEMATOCRIT 35.8 % (42.0-52.0); HEMOGLOBIN 12.1 g/dL (14.0-18.0); IMM GRAN# 0.06 X1000 (0.0-0.04); IMM GRAN% 0.5 % (0.0-0.5); LYMPH# 0.61 X1000 (1.2-3.4); LYMPH% 4.6 % (20.5-51.1); MANUAL DIFF NEEDED? YES; MCH 32.7 PG (27-31); MCHC 33.8 g/dL (33-37); MCV 96.8 FL (81-99); MONO# 0.94 X1000 (0.11-0.59); MONO% 7.1 % (1.7-9.3); MPV 9.9 FL (7.4-10.4); NEUT% 87.3 % (42.2-75.2); PLT 187 X1000 (130-400)
[2016-08-06 07:50] LABS: AGAP 11; ALBUMIN 2.6 g/dL (3.5-5.0); ALKALINE PHOSPHATASE 119 U/L (32-122); BUN 52 mg/dL (8-22); CALCIUM 8.7 mg/dL (8.8-10.2); CHLORIDE 100 mmol/L (98-107); COSMO 284; GOT 21 U/L (10-34); GPT 21 U/L (10-44); MAGNESIUM 2.1 mg/dL (1.5-2.7); POTASSIUM 4.4 mmol/L (3.5-5.1); SODIUM 135 mmol/L (136-145); TCO2 24 mmol/L (25-35); TOTAL BILIRUBIN 1.53 mg/dL (0.20-1.00); TOTAL PROTEIN 5.8 g/dL (6.3-8.3)
[2016-08-06] MEDS: PROTONIX IV SCH (07:56)
[2016-08-06] MEDS: ZOSYN 3.375 GM/NS 3.375 GM/50 ML IVPB IV SCH ×3 (07:56→20:30)
[2016-08-06] MEDS: CLINIMIX E 4.25%-5% SOLUTION 1,000 ML IV SCH (07:56)
[2016-08-06] MEDS: MORPHINE IV PRN ×3 (07:57→20:24)
[2016-08-06 08:11] LABS: BANDS 10 % (0-1); LYMPHS 14 % (21-51); MONO 12 % (1-9)
--- NOTE | 2016-08-06 08:19 | PROGRESS NOTE ---
DATE: 08/06/2016 VITAL SIGNS: Stable with temperature 98.7, heart rate 98, respirations 22, blood pressure 135/48, O2 saturation 94% on room air. LABORATORY: Hemoglobin 12.1, hematocrit 35.8, white blood count 13,200 with 87% neutrophils. Sodium 135, potassium 4.4, BUN 52, creatinine 1.1. Calcium 8.7. Total bilirubin 1.5, protein 5.8, albumin 2.6. OBJECTIVE: Lungs: Are clear to auscultation. Abdomen: Soft. Bowel sounds are present, but hypoactive. Extremities: Ankles revealed no edema. PLAN: Hopefully clamp NG and remove when possible. He has had no bowel movement since surgery. It is postoperative day 3. I and O over the last 24 hours positive 1099 mL. He has had 300 mL from the NG. Hopefully, he can begin some nutrition p.o. soon. cc: Philippe Ma MD
[2016-08-06] MEDS: PERIDEX MT SCH ×2 (09:22→22:47)
[2016-08-06] MEDS ORDERED: DULCOLAX PR ONE (11:20)
--- NOTE | 2016-08-06 14:56 | PROGRESS NOTE ---
DATE: 08/06/2016 SUBJECTIVE: He seems confused this morning but alert. No major complaints other than some soreness at his incisions. OBJECTIVE: Vital signs: Temperature is 98.7 degrees, pulse 98, blood pressure 135/48, oxygen 94% on room air. General: He is a cachectic, ill-appearing gentleman. Abdomen: Mildly distended. Incisions clean, dry, and intact. LABS: Reviewed. White count is up to 13 this morning. Hematocrit is 35. Creatinine is 1.1. ASSESSMENT AND PLAN: This is an 86-year-old male status post exploratory laparotomy for bowel obstruction, found to be related to adhesive disease status post cholecystectomy. White count is up a little bit but so is hematocrit. He may be a little dry. His NG tube is in place, still bilious. He is little distended. Will probably need to continue this. He is on peripheral parental nutrition and will recommend continuing this. As he has return of bowel function, we can DC the NG tube. I will give him a Dulcolax suppository today. Appreciate Dr. Ma's help with the medical management of this elderly gentleman. cc: MD Philippe Simmons MD
[2016-08-06] MEDS ORDERED: D5W 1,000 ML IV ONE (17:37)
[2016-08-07] MEDS: ZOSYN 3.375 GM/NS 3.375 GM/50 ML IVPB IV SCH ×4 (02:16→19:51)
[2016-08-07] MEDS: CLINIMIX E 4.25%-5% SOLUTION 1,000 ML IV SCH ×6 (02:16→23:18)
[2016-08-07] MEDS: MORPHINE IV PRN ×5 (02:19→19:54)
[2016-08-07] MEDS: PERIDEX MT SCH ×2 (08:25→22:20)
[2016-08-07] MEDS: PROTONIX IV SCH (08:25)
[2016-08-07] MEDS: SODIUM CHLORIDE 0.9% INJ SCH (08:25)
--- NOTE | 2016-08-07 08:36 | PROGRESS NOTE ---
DATE: 08/07/2016 VITAL SIGNS: Vital signs stable with temperature 98.4 degrees, heart rate 93, respirations 22, blood pressure 142/62. O2 saturation on room air 96%. SUBJECTIVE: The patient is weak and poorly responsive although no change from yesterday. Abdomen is slightly distended but nontender. Bowel sounds are present but only a little more active than yesterday. He has had no bowel movement. NG output was 280 mL. I and O is positive 1010. Lungs are clear to auscultation. PLAN: Continue NG tube until bowel sounds are more active. He is to get up in a chair a couple of times today. Plan to recheck lab tomorrow morning. cc: Philippe Ma MD
[2016-08-07] MEDS ORDERED: DULCOLAX PR ONE (09:25)
--- NOTE | 2016-08-07 09:59 | Diag Imaging Result Document ---
PROCEDURE NAME: CHEST/ABD TUBE PLACEMENT - 08/07/2016 PLAIN RADIOGRAPH OF THE LOWER CHEST AND UPPER ABDOMEN: COMPARISON: 08/02/2016. FINDINGS: There is a newly placed NG tube. The tip projects well below the diaphragm and is probably in the antrum of the stomach. There are ventral wall skin bess indicating an interval laparotomy. Patchy small-bowel and colonic gas is noted. There does appear to be less small- bowel distention as compared to previous studies, however. IMPRESSION: 1. Recent placement of NG tube in the expected position as described. 2. Patchy small-bowel gas that appears to have improved slightly since the previous study.
--- NOTE | 2016-08-07 10:10 | PROGRESS NOTE ---
DATE: 08/07/2016 SUBJECTIVE: No events recorded overnight. Nothing in the way of bowel function documented. Patient is unable to say if he has or not and no family at the bedside. OBJECTIVE: Vital Signs: No fevers. Temperature 98.4 degrees this morning. Pulse of 93. Blood pressure 142/62. Oxygen saturation 96% on room air. General: He has got a NG tube in that remains bilious, although the output is only 280 recorded. Abdomen: Soft, nondistended. Incision is clean, dry, and intact. Extremities: No significant lower extremity edema. Labs: Nothing new this morning. ASSESSMENT AND PLAN: An 86-year-old male status post exploratory laparotomy for bowel obstruction with a cholecystectomy for cholelithiasis. He is slowly improving. Has not had return of bowel function as of yet. A nasogastric tube is in place, remains bilious. He is on parenteral support. Needs aggressive physical therapy. He is very deconditioned and malnourished. We may need to increase this to full total parenteral nutrition if his ileus does not show signs of improving. I am going to check an x-ray today to ensure this nasogastric tube is not transpyloric, given the bilious drainage, and will give him another suppository from below. cc: MD Philippe Simmons MD
[2016-08-07] MEDS: TEARISOL OPH SOLUTION LEFT EYE PRN (17:25)
[2016-08-07] MEDS: TEARISOL OPH SOLUTION LEFT EYE SCH ×2 (19:52→22:20)
[2016-08-08] MEDS: MORPHINE IV PRN ×2 (02:09→04:34)
[2016-08-08] MEDS: ZOSYN 3.375 GM/NS 3.375 GM/50 ML IVPB IV SCH (02:09)
[2016-08-08 03:13] VITALS: BP 142/69
[2016-08-08 05:33] LABS: MANUAL DIFF NEEDED? NO
[2016-08-08 05:46] LABS: BASO% 0.1 % (0.0-0.8); EOS# 0.07 X1000 (0.0-0.7); EOS% 0.8 % (0.0-10.0); HEMATOCRIT 29.9 % (42.0-52.0); IMM GRAN# 0.04 X1000 (0.0-0.04); IMM GRAN% 0.5 % (0.0-0.5); LYMPH# 0.55 X1000 (1.2-3.4); LYMPH% 6.5 % (20.5-51.1); MCH 32.3 PG (27-31); MCHC 33.4 g/dL (33-37); MCV 96.5 FL (81-99); MONO# 0.74 X1000 (0.11-0.59); MONO% 8.7 % (1.7-9.3); MPV 9.7 FL (7.4-10.4); NEUT% 83.4 % (42.2-75.2); PLT 168 X1000 (130-400)
[2016-08-08 05:57] LABS: AGAP 8; BUN 56 mg/dL (8-22); CHLORIDE 100 mmol/L (98-107); COSMO 281; POTASSIUM 4.4 mmol/L (3.5-5.1); SODIUM 132 mmol/L (136-145); TCO2 24 mmol/L (25-35)
--- NOTE | 2016-08-08 07:57 | PROGRESS NOTE ---
DATE: 08/08/2016 I received a call early this morning at 6:55. The patient was in the process of coding. Apparently, he had been repositioned and nurses were called with his condition deteriorated and not breathing. The code was called and CPR and IV medicines given. He did not respond after 20 minutes. He was pronounced at 7:25 a.m. Vital signs at 3:12 a.m. had been normal with temperature 98.4, heart rate 86, respirations 20, blood pressure 142/69, O2 saturation on room air 95%. LABORATORY: This morning, hemoglobin 10.0, hematocrit 29.9, white blood count 8500 with 83% neutrophils. Sodium 132, potassium 4.4, BUN 56, creatinine 1.1. Blood sugar 120. CAUSE OF : Could have been a stroke or cardiac event. There was also possibility of pulmonary embolus. cc: Philippe Ma MD
[2016-08-08] MEDS ORDERED: NS ONE (08:00)
[2016-08-08] MEDS ORDERED: SODIUM BICARBONATE 8.4% ONE (08:00)
[2016-08-08] MEDS ORDERED: EPINEPHRINE SYRINGE ONE (08:00)
[2016-08-08] MEDS ORDERED: ATROPINE SYRINGE ONE (08:00)
--- NOTE | 2016-08-08 09:55 | PROGRESS NOTE ---
DATE: 08/08/2016 Mr Mejia was rolled this morning and apparently sustained a code event. ACLS protocol was initiated but unable to obtain return of cardiac function and was pronounced . I spoke with the daughter at the bedside. I gave my condolences. They are understanding and seemed somewhat grateful that Mr. Mejia's struggles are over. I am available if I can be of any assistance with the family or answer any questions. cc: MD Philippe Simmons MD MTDD
--- NOTE | 2016-08-09 01:30 | DISCHARGE SUMMARY ---
ADMISSION DATE: 07/27/2016 DISCHARGE DATE: 08/08/2016 DATE OF ADMISSION: 07/27/2016. DATE OF : 08/08/2016. FINAL DIAGNOSES: 1. Small-bowel obstruction. 2. Volume depletion. 3. Chronic cholecystitis and cholelithiasis. 4. Dementia. 5. Moderate protein and calorie malnutrition. CONSULTATIONS: With Dr. Chan. PROCEDURE: Laparotomy with cholecystectomy and removal of adhesions. HISTORY AND HOSPITAL COURSE: This is the first recent [facility] admission for this 86-year- old white man with nausea and vomiting for a couple of days prior to admission. Abdominal films revealed possible small bowel obstruction and cholelithiasis. Conservative treatment was done with an NG tube. He seemed to improve, and abdominal film showed resolution of obstruction. NG was removed, and within a couple of days he developed recurrent nausea and vomiting and signs of obstruction. NG was replaced, and he was transferred to [facility] for surgical evaluation and consultation. Conservative treatment was continued for another couple of days, then he underwent laparotomy, with lysis of adhesions. NG has remained, and bowel function has not returned. He continued to have hypoactive bowel sounds, and no flatus or stool. Additional IV nutrition was started several days ago with amino acids and D7.5. This morning, he was repositioned in the bed, and shortly thereafter ceased respiration. The code was called, and despite IV medicines and CPR, he did not respond. I was called at 6:55 a.m. at home, and arrived at 7:20. The code had been stopped, and the patient was found to be . He has pronounced at 7:25 a.m. Cause of was possibly a cardiac event, stroke, or pulmonary embolus. cc: Philippe Ma MD
== END 2016-08-08 07:04 | disposition expired ==
LOC: P.DIRADM 14:26 → P.MEDSURG 14:44 → 4N 07-31 18:08
PROVIDERS: ADMIT Family Medicine; ATTEND Family Medicine